=== PATIENT | male | born 1970 | race Caucasian/White ===

== ENCOUNTER 2016-12-16 12:07 | Emergency (ER) | payer BC ==
[2016-12-16 12:20] VITALS: BP 141/90
--- NOTE | 2016-12-16 12:41 | UC ---
UC General HPI - HPI Summary HPI Summary: OVER PAST SEVERAL WEEKS PT HAS BEEN WAKING UP WITH JOINT AND MUSCLE PAIN. STARTED IN HIS NECK AND RIGHT SHOULDER. FELT LIKE THEY "SEIZED UP". THEN MOVED TO HIS RIGHT ARM AND BOTH HIPS. NOW THOSE SYMPTOMS ARE RESOLVED AND TODAY HE WOKE UP WITH RIGHT KNEE FEELING STIFF SORE. DURING THE DAY THE PAIN IMPROVES BUT THE NEXT MORNING HE WAKES UP WITH PAIN AGAIN. SEEMS TO MOVE AROUND. NO RASH OR SWELLING. NO INVOLVEMENT OF SMALL JOINTS OF HANDS OR FEET. NO INJURY. TOOK 7 DAYS OF BACTRIM FOR A SUPRAPUBIC CYST PER UROLOGY ABOUT A MONTH AGO. NO OTHER NEW MEDS. - History of Current Complaint Chief Complaint: UCGeneralIllness Stated Complaint: JOINT PAIN Time Seen by Provider: 12/16/16 12:26 Hx Obtained From: Patient Onset/Duration: Sudden Onset, Lasting Weeks, Still Present Timing: Intermittent Episodes Lasting: Onset Severity: Moderate Current Severity: Mild Pain Intensity: 0 - Allergy/Home Medications Allergies/Adverse Reactions: Allergies Allergy/AdvReac Type Severity Reaction Status Date / Time No Known Allergies Allergy Verified 12/16/16 12:13 PMH/Surg Hx/FS Hx/Imm Hx Previously Healthy: Yes - Surgical History Surgical History: Yes Surgery Procedure, Year, and Place: bilat inguinal hernia as a child - Family History Known Family History: Negative: Hypertension Family History: denies family history of ENT disorders, ARTHRITIS - Social History Alcohol Use: Weekly Alcohol Amount: TWICE WEEKLY - 2-3 AT A TIME Substance Use Type: None Smoking Status (MU): Never Smoked Tobacco - Immunization History Most Recent Influenza Vaccination: NEVER GETS Most Recent Tetanus Shot: UTD Review of Systems Constitutional: Negative Skin: Negative Respiratory: Negative Cardiovascular: Negative Gastrointestinal: Negative Musculoskeletal: Arthralgia All Other Systems Reviewed And Are Negative: Yes Physical Exam Triage Information Reviewed: Yes Appearance: Well-Appearing, No Pain Distress, Well-Nourished Vital Signs: Initial Vital Signs Temp 98.2 F 12/16/16 12:09 Pulse 86 12/16/16 12:09 Resp 16 12/16/16 12:09 BP 141/90 12/16/16 12:09 Pulse Ox 100 12/16/16 12:09 Vital Signs Reviewed: Yes Eyes: Positive: Conjunctiva Clear ENT: Positive: Hearing grossly normal Neck: Positive: Supple Respiratory Exam: Normal Cardiovascular Exam: Normal Abdomen Description: Positive: Soft Musculoskeletal: Positive: ROM Intact, No Edema, Other: - MILDLY TENDER OVER RIGHT KNEE BUT EXAM OTHERWISE NORMAL Neurological: Positive: Alert Psychological: Positive: Age Appropriate Behavior Skin: Negative: rashes Course/Dx - Course Course Of Treatment: PT DENIES ANY CHANCE OF GONORRHEA OR HIV OR OTHRE INFECTIOUS DISEASE. NSAIDS AND FLEXERIL FOR SYMPTOMATIC TX. F/U RHEUMATOLOGY. - Differential Dx - Multi-Symptom Provider Diagnoses: MIGRATORY POLYARTHRALGIA Discharge - Discharge Plan Condition: Stable Disposition: HOME Prescriptions: Cyclobenzaprine TAB* [Flexeril TAB*] 10 mg PO BID PRN #30 tab PRN Reason: Pain Patient Education Materials: Arthralgia (ED) Referrals: No Primary Care Phys,NOPCP [Primary Care Provider] - Additional Instructions: UNCLEAR CAUSE OF YOUR MIGRATORY JOINT PAIN. NSAIDS AND MUSCLE RELAXER NEEDED. IF YOUR SYMPTOMS DO NOT CONTINUE TO IMPROVE AND EVENTUALLY RESOLVE, CONSIDER EVALUATION BY RHEUMATOLOGY. [facility] Address: [address], [place] [address] CALL THE NUMBER BELOW FOR ASSISTANCE IN ESTABLISHING WITH A PCP An additional resource available to assist in finding the appropriate physician for your health care needs is [facility] ([facility]). You may contact them by calling [phone].
== END 2016-12-16 12:50 | disposition home or self-care (01) ==
LOC: UCEAST 12:07
DX: M25.50 Pain in unspecified joint (principal)
CPT/HCPCS: 99212; G0463

== ENCOUNTER 2018-10-17 12:59 | Emergency (ER) | payer BC ==
[2018-10-17 13:10] VITALS: BP 153/95
--- NOTE | 2018-10-17 15:00 | UC ---
Hand/Wrist HPI - HPI Summary HPI Summary: Mr. Matthews fell off a ladder on Wednesday 2 days prior to arrival. He fell onto his outstretched left wrist. It's been hurting him a lot and interfering with his sleep. He comes in with it wrapped. - History Of Current Complaint Chief Complaint: UCUpperExtremity Stated Complaint: WRIST INJURY Time Seen by Provider: 10/17/18 14:35 Hx Obtained From: Patient Onset/Duration: Sudden Onset Severity Initially: Moderate Severity Currently: Moderate Pain Intensity: 6 Character Of Pain: Throbbing, Stiffness Aggravating Factor(s): Movement, Lifting, Flexion, Extension, Internal/External Rotation, Abduction, Adduction, Twisting Alleviating Factor(s): Nothing Associated Signs And Symptoms: Positive: Negative - Allergies/Home Medications Allergies/Adverse Reactions: Allergies Allergy/AdvReac Type Severity Reaction Status Date / Time No Known Allergies Allergy Verified 10/17/18 13:10 Home Medications: Home Medications NK [No Home Medications Reported] 10/17/18 [History Confirmed 10/17/18] PMH/Surg Hx/FS Hx/Imm Hx Previously Healthy: Yes - Surgical History Surgical History: Yes Surgery Procedure, Year, and Place: Bilateral inguinal hernia as a child - Family History Known Family History: Negative: Hypertension Family History: denies family history of ENT disorders, ARTHRITIS - Social History Alcohol Use: Occasionally Alcohol Amount: TWICE WEEKLY - 2-3 AT A TIME Substance Use Type: None Smoking Status (MU): Never Smoked Tobacco - Immunization History Most Recent Influenza Vaccination: NEVER GETS Most Recent Tetanus Shot: UTD Review of Systems All Other Systems Reviewed And Are Negative: Yes Motor: Positive: Decreased ROM Neurovascular: Positive: Negative Musculoskeletal: Positive: Decreased ROM Neurological: Positive: Negative Physical Exam - Summary Physical Exam Summary: he is nontoxic in appearance with stable vitals. Triage Information Reviewed: Yes Appearance: Pain Distress Vital Signs: Initial Vital Signs Temp 97.6 F 10/17/18 13:06 Pulse 84 10/17/18 13:06 Resp 16 10/17/18 13:06 BP 153/95 10/17/18 13:06 Pulse Ox 100 10/17/18 13:06 Vital Signs Reviewed: Yes Musculoskeletal Exam: Other - He has mild swelling in his left wrist. He is tender to range of motion or palpation. Distal neurovascular and motor are intact. Neurological Exam: Normal Skin Exam: Normal Procedures - Splinting Left Upper Extremity Hand-Made Type: orthoglass Splint: ulnar Pre-Proc Neuro Vasc Exam: normal Post-Proc Neuro Vasc Exam: normal Diagnostics - Radiology Left Wrist Radiology Interpretation Completed By: Radiologist Summary of Radiographic Findings: Comminuted Intrarticular fracture Hand/Wrist Course/Dx - Course Course Of Treatment: I splinted his wrist and we'll give him a prescription for tramadol and encouraged him to use ibuprofen and follow-up with orthopedics. - Differential Dx/Diagnosis Provider Diagnosis: Left wrist fracture Discharge - Sign-Out/Discharge Documenting (check all that apply): Patient Departure All imaging exams completed and their final reports reviewed: Yes - Discharge Plan Condition: Stable Disposition: HOME Patient Education Materials: Wrist Fracture in Adults (ED), Ibuprofen (By mouth ) Referrals: Sierra Atkinson PA [Primary Care Provider] - - Billing Disposition and Condition Condition: STABLE Disposition: Home
== END 2018-10-17 15:20 | disposition home or self-care (01) ==
LOC: UCEAST 12:59
DX: S62.102A Fracture of unspecified carpal bone, left wrist, initial encounter for closed fracture (principal); W11.XXXA Fall on and from ladder, initial encounter; Y93.9 Activity, unspecified; Y92.017 Garden or yard in single-family (private) house as the place of occurrence of the external cause; Y99.8 Other external cause status
CPT/HCPCS: 26755; 99212; G0463